=== PATIENT | female | born 1950 | race Caucasian/White ===

== ENCOUNTER 2024-04-14 15:01 | Emergency (ER) | payer MEDICARE, OTHER, SELFPAY ==
[2024-04-14 15:02] VITALS: BP 212/110; PULSE 73; RESP 15; TEMP 36.7; O2SAT 98; BMI 22.1
--- NOTE | 2024-04-14 15:41 | EKG12_ITS ---
Test Reason : Blood Pressure : / mmHG Vent. Rate : 072 BPM Atrial Rate : 072 BPM P-R Int : 148 ms QRS Dur : 076 ms QT Int : 386 ms P-R-T Axes : 056 031 014 degrees QTc Int : 422 ms Normal sinus rhythm Possible Left atrial enlargement Borderline ECG Confirmed by KATHLEEN VALDIVIA, SHAAN ([id number]), story editor SAUL DOHERTY ([id number]) on 04/15/2024 8:18:21 AM Referred By: ADIN Confirmed By:SHAAN WANG MD
--- NOTE | 2024-04-14 15:41 | EX.ED.DYSGE1 ---
HPI History of Present Illness Chief Complaint: Hypertension Informant: patient and spouse/S.O. Narrative Narrative: 73-year-old female presenting to the emergency room with hypertension. The patient states that she has a history of hypertension and up until last fall was on a blood pressure medication which she believes may have been hydrochlorothiazide. She states that she had a syncopal episode was taken to the hospital and diagnosed with rhinovirus and was found to have a sodium of 70. She states she was told it was due to the blood pressure medication and the medicine was stopped. She states she has not been restarted on the medicine. Patient states that she saw her primary care doctor for 6-month checkup this spring and was advised to take her blood pressure on a daily basis which she has not. She took her blood pressure over the weekend for no particular reason was found to be 158 systolically. Patient states that today she was due to have cataract surgery and when they took her blood pressure it was in the 200-210 systolic range. Patient states she does not particularly feel any different than normal. She states that her eye doctor stated that she had changes in her eye consistent with high blood pressure. Patient states that she will intermittently get a warm flushing sensation like she may pass out. She denies any leg swelling. No bowel or bladder changes. No chest pain or dyspnea. No prior stroke. She is treated for hypothyroidism with levothyroxine. [facility] Medical History (Updated 04/14/24 @ 15:[address] Osvaldo De Jesus DO) Cataract Hypothyroidism Hypertension Home Medications ?Medication ?Instructions ?Recorded ?Last Taken ?Type amlodipine 5 mg-valsartan 160 mg 1 tab PO DAILY #14 tabs 04/14/24 Unknown Rx tablet Allergy/AdvReac Type Severity Reaction Status Date / Time No Known Allergies Allergy Verified 04/14/24 15:04 Social History Smoking Status: Never smoker ROS ROS ED Constitutional Constitutional ED: Denies chills, fever(s) or weight loss Eyes Eyes: Denies change in vision or diplopia ENT ENT ED: Denies ear pain, rhinorrhea or sore throat Cardiovascular Cardiovascular: Denies chest pain, orthopnea, palpitations or racing heartbeat Respiratory/Chest Respiratory/Chest: Denies cough, dyspnea or orthopnea Gastrointestinal Gastrointestinal: Denies abdominal pain, diarrhea, nausea or vomiting Genitourinary Genitourinary ED: Denies dysuria, hematuria or urinary frequency Musculoskeletal Musculoskeletal: Denies arthralgias or myalgias Integumentary Denies abscess or rash Neurologic Neurologic: Denies headache(s), paresthesias or weakness Psychiatric Psychiatric: Denies anxiety, depression, suicidal ideation or suicidal thoughts Endocrine Endocrinology: Denies polydipsia, polyphagia or polyuria Allergic/Immunologic Allergic/Immunologic ED: Denies mouth swelling, tongue swelling or urticaria EXAM Physical Exam Const Vital Signs: 04/14/24 15:02 04/14/24 15:27 04/14/24 17:02 Temperature 98.0 F Temperature Source Temporal Pulse Rate 73 72 Respiratory Rate 15 21 H Respiratory Effort Normal Non-Labored Blood Pressure 212/110 H 169/80 H Blood Pressure Mean 144 109 Pulse Ox 98 96 Oxygen Delivery Method Room Air Room Air Positive well nourished and well developed General Appearance ED: well developed HEENT Reports normocephalic, head/scalp atraumatic and moist mucous membranes HEENT Narrative: Left eye is dilated (patient had dilating drops placed as part of her preoperative preparation) Eyes PERRL and EOMs intact bilaterally Neck no lymphadenopathy, supple and no JVD Neck Narrative: No carotid bruits heard Resp normal respiratory effort and clear to auscultation bilaterally Cardio regular rate, regular rhythm and no murmurs GI normal to inspection, nondistended, normoactive bowel sounds and non-tender Palpation: soft Back/Spine no CVA tenderness and normal ROM Extremity normal to inspection General Extremety ED: Negative for edema General Extremity: Negative for edema Neuro oriented x3 and CN's II-XII intact bilaterally Sensorium / Orientation: alert Motor Exam: strength 5/5 throughout Psych mental status grossly normal Mood & Affect: Negative for depressed or tearful Skin no rashes or lesions noted and no wounds MDM MDM MDM Narrative Medical decision making narrative: Differential diagnosis includes but not limited to hypertensive urgency emergency stroke aortic dissection ACS/NSTEMI electrolyte abnormalities like hyponatremia renal failure primary hypertension My independent interpretation of the chest x-ray is no acute process. Normal mediastinal size. Basic blood work showed a normal CBC BMP troponin. Urinalysis with no proteinuria. Patient's blood pressure has come down on its own. Using shared decision making I spoke with the patient and her regarding antihypertensives to take at home. We talked about risk benefits of many different types of medicines. At this point we will start her on amlodipine?valsartan. Would recommend she take her blood pressure daily for the next 10 to 14 days and follow-up with her primary care doctor for adjustments. She will return if she is worsening has potential side effects or concerns. History & Record Review Discussion w/independent historian: Patient and Significant other Lab Data Attestation: I reviewed the patient's lab results. Labs: Laboratory Results - last 24 hr 04/14/24 04/14/24 16:15 17:35 WBC 5.2 RBC 5.22 Hgb 14.5 Hct 45.2 MCV 86.6 MCH 27.8 MCHC 32.1 RDW Std Deviation 43.1 RDW Coeff of Yosvany 13.7 Plt Count 213 MPV 11.6 Immature Gran % (Auto) 0.200 Neut % (Auto) 56.8 Lymph % (Auto) 32.2 [place] % (Auto) 7.1 Eos % (Auto) 2.9 Baso % (Auto) 0.8 Absolute Neuts (auto) 3.0 Absolute Lymphs (auto) 1.68 Nucleated RBC % 0 Sodium 137 Potassium 3.5 Chloride 103 Carbon Dioxide 27.0 Anion Gap 7 BUN 10 Creatinine 0.55 Estim Creat Clear Calc 59.51 Est GFR (MDRD) Af Amer 138 Est GFR (MDRD) Non-Af 114 BUN/Creatinine Ratio 18.1 Glucose 99 Calcium 9.7 Total Bilirubin 0.50 AST 16 ALT 27 Alkaline Phosphatase 75 Troponin I High Sens 13 Total Protein 8.6 H Albumin 3.9 Globulin 4.7 H Albumin/Globulin Ratio 0.8 L Urine Color Straw Urine Clarity Clear Urine pH 8.0 Ur Specific [place] 1.010 Urine Protein Negative Urine Glucose (UA) Normal Urine Ketones 5 H Urine Occult Blood Negative Urine Nitrite Negative Urine Bilirubin Negative Urine Urobilinogen Normal Ur Leukocyte Esterase Negative Urine RBC 0 SEEN Urine WBC 0 SEEN Ur Squamous Epith Cells 0 SEEN Urine Bacteria 0 SEEN Urine Mucus 0 SEEN Radiography Diagnostic Testing: Clinical Impression(s) from Imaging Studies Chest X-Ray 04/14/24 16:00 IMPRESSION: There are findings consistent with COPD. There is no evidence of acute chest disease. Electronically Signed: Bubba Solis MD at 16:30 EDT , EKG Initial EKG: Attestation: I personally reviewed and interpreted this EKG as follows: Comments: Normal sinus rhythm ventricular rate of 72 bpm. Discharge Plan Triage Chief Complaint: Hypertension ED Provider: Osvaldo De Jesus Dx/Rx/DC Orders Clinical Impression: Hypertension Instructions: ED High Blood Pressure Hypertension Prescriptions: New amlodipine-valsartan 5-160 mg tablet 1 tab PO DAILY Qty: 14 0RF Primary Care Provider: Susie James Referrals: Susie James PA [Primary Care Provider] - 1-2 Weeks Activity Restrictions/Additional Instructions: Will be most beneficial for your doctor to be able to review daily blood pressure readings. I would recommend at least 10 to 14 days worth of data to take to them. Please record the time of day on which arm you are using. Please be consistent with your device and arm used as well as position you are sitting in. Print Language: Slovak Disposition Disposition: Home, Self Care
--- NOTE | 2024-04-14 16:00 | RAD_ITS ---
STUDY: X-RAY CHEST REASON FOR EXAM: Female, 73 years old. hypertension TECHNIQUE: Single AP portable view of the chest. COMPARISON: None. FINDINGS: There is hyperinflation of the lungs consistent with chronic obstructive lung disease (COPD). No infiltrates or effusions. There is no demonstrated pleural abnormality. There is mild cardiac enlargement. Normal mediastinum and rubin. Normal visualized pulmonary arteries. Normal visualized aortic arch and descending thoracic aorta. There are diffuse degenerative changes of the visualized thoracic spine. Normal visualized ribs, clavicles, and shoulders. There is no demonstrated abnormality of the visualized soft tissue structures of the upper abdomen. RAD/Chest 1 View (Portable) IMPRESSION: There are findings consistent with COPD. There is no evidence of acute chest disease. Electronically Signed: Bubba Solis MD at 16:30 EDT ,
[2024-04-14 17:02] VITALS: BP 169/80; PULSE 72; RESP 21; O2SAT 96
[2024-04-14 17:23] LABS: Bacteria 0 SEEN /hpf (None Seen); Mucous, Urine 0 SEEN /hpf (<or=2+); Red Blood Cells-Urine 0 SEEN /hpf (0-5); Squamous Epithelial Cells - UA 0 SEEN /hpf (5-10); White Blood Cells 0 SEEN /hpf (0-5)
[2024-04-14 17:35] LABS: Color, Urine Straw (Yellow); Glucose, Dipstick Normal (Normal); Ketone-Dipstick 5 mg/dl (Negative); Leukocyte Esterase-Dipstick Negative /ul (Negative); Nitrite-Dipstick Negative (Negative); Occult Blood-Urine Negative /ul (Negative); Protein-Dipstick Negative (Negative); Urine Bilirubin Dipstick Negative (Negative); Urine Clarity Clear (Clear); Urine Urobilinogen Normal (Normal)
[2024-04-14 17:41] LABS: Absolute Lymphocyte Count 1.68 X10^3/uL (0.83-4.51); Basophil# 0.04 X10^3/uL; Basophil% 0.8 % (0-1); Eosinophil# 0.15 X10^3/uL; Eosinophils% 2.9 % (0-5); Hematocrit 45.2 % (37-47); Hemoglobin 14.5 g/dL (12.0-15.0); Lymphocyte # 1.68 X10^3/ul (0.83-4.51); Lymphocyte % 32.2 % (19-41); Mean Corp Hgb Conc 32.1 g/dL (32-36); Mean Corpuscular Hgb 27.8 pg (27.0-32.0); Mean Corpuscular Volume 86.6 fL (81-99); Mean Platelet Vol. 11.6 fl (6.2-12.0); Monocyte# 0.37 X10^3/uL; Monocyte% 7.1 % (0-10); NRBC Flagged by Analyzer 0 % (0-5); Neutrophil # 2.96 X10^3/uL (2.7-7.7); Neutrophil % 56.8 % (47-70); Platelet Count 213 K/mm3 (150-450); RBC Distribution Width CV 13.7 % (11.6-14.6); RBC Distribution Width SD 43.1 fl (35.1-43.9); Red Blood Count 5.22 M/mm3 (4.2-5.4); White Blood Count 5.2 K/mm3 (4.4-11.0)
[2024-04-14 18:05] LABS: ALB/GLOB Ratio 0.8 RATIO (0.9-2.4); AST(SGOT) 16 U/L (15-37); Alanine Aminotransfer ALT/SGPT 27 U/L (13-56); Albumin, Serum 3.9 g/dL (3.2-5.0); Alkaline Phosphatase 75 U/L (45-117); Anion Gap 7 (5-15); BUN 10 mg/dL (7-18); BUN/Creat Ratio 18.1 RATIO (10-20); Calcium,Total 9.7 mg/dL (8.5-10.1); Chloride 103 mmol/L (98-107); Creatinine, Serum 0.55 mg/dL (0.55-1.02); EST Glomerular Filtration Rate 114 mL/min (>60); Est Glom Filt Rate - Afr Amer 138 mL/min (>60); Estimated Creatinine Clearance 59.51 ml/min; Globulin 4.7 g/dL (2.2-4.2); Glucose 99 mg/dL (74-106); Potassium 3.5 mmol/L (3.5-5.1); Protein, Total 8.6 g/dL (6.4-8.2); Sodium Level 137 mmol/L (136-145); Troponin-I HS 13 pg/mL (3.0-54.0)
[2024-04-14 19:00] VITALS: BP 146/73; PULSE 75; RESP 22; O2SAT 98
[2024-04-14 19:19] VITALS: PULSE 79; RESP 18; TEMP 36.7; O2SAT 97
[2024-04-14] MEDS: amLODIPine 5 MG Tablet PO (19:29)
== END 2024-04-14 19:32 | disposition home or self-care (01) ==
PROVIDERS: Emergency Provider Emergency Medicine; Visit Provider Emergency Medicine
DX: I10 Essential (primary) hypertension (principal); E03.9 Hypothyroidism, unspecified; Z79.899 Other long term (current) drug therapy
CPT/HCPCS: 36415; 71045; 80053; 81001; 84484; 85025; 93005; 99283; A4216